=== PATIENT | male | born 1950 | race Caucasian/White ===

== ENCOUNTER 2019-03-17 22:57 | Inpatient (IN) | payer MEDICARE, BC | END 2019-03-18 10:50 | disposition home or self-care (01) | LOC: ER 22:57 → SUR 3N 03-18 02:53 ==

== ENCOUNTER 2019-05-29 23:47 | Emergency (ER) | payer BC, MEDICARE ==
[~2019-05-29] VITALS: Ht 182.9 cm; Wt 100.0 kg
[~2019-05-29 23:47] MED LIST: FLO0.4C PO; HYDR-4353 PO; MONT10TA21 PO; OLME40TA13 PO; SIMV20TA PO; TRAM50TA2 PO; TRIA1CAP6 PO
--- NOTE | 2019-05-30 00:01 | NUR ---
pt continues to shout "fuck you " at staff and yell "let me go" - he is in four point restraints and [employer] is still at bedside - pt then starts singing "misty ihelder" "ghost riders in the [place]"
[2019-05-30] MEDS ORDERED: LORazepam 2 mg/ml vial IV ONE (00:05)
[2019-05-30] MEDS ORDERED: normal saline 1000ML IV soln IVB ONE (00:05)
--- NOTE | 2019-05-30 00:07 | NUR ---
PT SHOUTED "CAN I TAKE YOU OUT AND SHOOT YOU"? AND THEN BEGINS SINGING AGAIN AND ASKS TO HAVE HIS BACK RUBBED AND "BEAT THE FUCK OUT OF ME"
--- NOTE | 2019-05-30 00:15 | NUR ---
PT HAS BEEN MEDICATED, LIGHTS DIMMED AND STAFF PRESENCE DECREASED. PT IS STILL IN RESTRAINTS AND IS REMINDED THAT HE NEEDS TO FOLLOW SAFETY DIRECTIONS AND STOP THREATENIND STAFF IN ORDER TO GET RELEASED FROM THE RESTRAINTS.
[2019-05-30 00:16] LABS: BASOPHILS # (AUTO) 0.1 X10'3 (0-0.2); BASOPHILS % (AUTO) 0.5 % (0-1); EOSINOPHILS % (AUTO) 0.3 % (0-6); HEMATOCRIT 42.7 % (42.0-52.0); LYMPHOCYTES # (AUTO) 2.4 X10'3 (1.1-4.8); LYMPHOCYTES % (AUTO) 21.5 % (21-51); MEAN CORPUSCULAR HEMOGLOBIN 27.6 PG (27.0-31.0); MEAN CORPUSCULAR HGB CONC 32.9 g/dL (33.0-36.5); MEAN CORPUSCULAR VOLUME 83.8 FL (78-98); MEAN PLATELET VOLUME 7.9 FL (7.4-10.4); MONOCYTES % (AUTO) 9.2 % (2-12); NEUTROPHILS # (AUTO) 7.5 X10'3 (1.8-7.7); NEUTROPHILS % (AUTO) 68.5 % (42-75); PLATELET COUNT 405 X10'3 (140-440); RED BLOOD COUNT 5.09 X10'6 (4.70-6.10)
[2019-05-30 00:18] LABS: CLARITY,URINE CLEAR (Clear); COLOR,URINE YELLOW (Yellow); GLUCOSE, URINE NEGATIVE (Neg); KETONES,URINE NEGATIVE (Neg); LEUKOCYTE ESTERASE ,URINE NEGATIVE (Neg); NITRITES, URINE NEGATIVE (Neg); OCCULT BLOOD,URINE SMALL (Neg); PROTEIN,URINE NEGATIVE (Neg); UROBILINOGEN,URINE 0.2 E.U/dL (0.2-1.0)
--- NOTE | 2019-05-30 00:18 | NUR ---
Lights dimmed and room cleared of security and nursing staff to attempt to get the patient calm. Patient remains in restraints because he continues to scream obsceneties and threaten staff stating, "who the fuck are you? I want you ! I'll send my sons to kick your fucking ass!"
[2019-05-30 00:19] LABS: UA COLLECTION TYPE STRAIGHT CATH
[2019-05-30 00:24] LABS: BACTERIA,URINE NONE SEEN /HPF (Neg); SQUAMOUS EPITHELIAL CELL,UR FEW /LPF (FEW); WBC,URINE 0-4 /HPF (0-4)
[2019-05-30 00:32] LABS: URINE AMPHETAMINE SCREEN NEGATIVE (Neg); URINE BARBITUATE SCREEN NEGATIVE (Neg); URINE BENZODIAZEPINES SCREEN NEGATIVE (Neg); URINE CANNABINOID SCREEN NEGATIVE (Neg); URINE COCAINE SCREEN NEGATIVE (Neg); URINE METHADONE SCREEN NEGATIVE (Neg); URINE OPIATE SCREEN NEGATIVE (Neg); URINE PHENCYCLIDINE SCREEN NEGATIVE (Neg)
[2019-05-30 00:33] LABS: ALANINE AMINOTRANSFERASE 50 U/L (12-78); ALBUMIN 3.4 G/DL (3.4-5.0); ALBUMIN/GLOBULIN RATIO 0.9 (1.1-1.5); ALKALINE PHOSPHATASE 96 IU/L (46-116); ANION GAP 17 (8-16); ASPARTATE AMINO TRANSFERASE 29 U/L (10-37); BILIRUBIN,TOTAL 0.3 MG/DL (0.1-1.0); BLOOD UREA NITROGEN 33 MG/DL (7-18); BUN/CREATININE RATIO 14.4 (5.4-32.0); CALCIUM 9.9 MG/DL (8.5-10.1); CHLORIDE 111 MMOL/L (99-107); CREATININE 2.29 MG/DL (0.60-1.10); GLUCOSE 184 MG/DL (70-104); POTASSIUM 3.6 MMOL/L (3.5-5.1); SODIUM 149 MMOL/L (135-145); TOTAL CARBON DIOXIDE 20.6 MMOL/L (24-32); eGFR 29 ML/MIN
[2019-05-30 00:42] LABS: ETHANOL 0.251 GM/DL (0.0-0.010)
--- NOTE | 2019-05-30 00:46 | NUR ---
Patient is now sleeping comfortably and restraints have been removed.
--- NOTE | 2019-05-30 01:02 | NUR ---
elisha to bedside to see patient. She states that he has been sober to the best of her knowledge since his last visit for the same symptoms. She inquires as to whether or not the patient will be admitted and if not, she would like mental health to see the patient if possible. She states that she thinks he may have been drinking vodka like the last time he was here. She leaves her home phone number for contact, [phone].
--- NOTE | 2019-05-30 02:03 | NUR ---
Patient is sleeping comfortably on his stomach with even, unlabored breathing. Patient is easily arousable but falls quickly back to sleep. He repeatedly removes his vitals monitoring equipment.
[2019-05-30] MEDS ORDERED: LIDOcaine 1% w/epiNEPHrine 1:200,000 30ml vial IM ONE (02:05)
[2019-05-30] MEDS ORDERED: TETanus/Pertussis (Acell)/Diphther VAC/PF (Tdap-Adult) 0.5ml syringe IM ONE (02:05)
--- NOTE | 2019-05-30 02:09 | NUR ---
Patient awoke and removed his IV without saying anything to staff. Patient was sitting in the corner of the room in a chair when Dr. Santos went in to check his legs to see if any wounds needed suturing. Patient was not very agreeable to answering questions making comments such as, "I do, do you?" when he was asked what year it was. Patient initially believed that it was year 1974 and that Earl Doyle was the president before slowly coming to the realization that it was, "almost 2016" and that Perico Bowman is the president.
--- NOTE | 2019-05-30 02:48 | NUR ---
Patient is now awake and much more cooperative. Patient with requests of water which was provided in large pitcher.
[2019-05-30] MEDS ORDERED: LIDOcaine/epinephrine TOPICAL 5 ML BTL TOP ONE (03:05)
--- NOTE | 2019-05-30 03:42 | NUR ---
Wound irrigated with 500mL of normal saline as requested by Dr. Santos.
[2019-05-30] MEDS ORDERED: CEPH500C5 PO (04:07)
--- NOTE | 2019-05-30 04:14 | NUR ---
Wound sutured by Dr. Santos. Wound dressed with petroleum gauze and gauze wrap.
--- NOTE | 2019-05-30 04:16 | NUR ---
Attempt made to contact Jennifer but she did not answer the phone. Message left for her to call back when she became available.
--- NOTE | 2019-05-30 04:46 | NUR ---
Patient is AOx4 and ambulating about the ED without any assistance. He is discharge ready and does not wish to wait until his answers to come get him. He states he has access to the house even if his and daughter who are at the residence do not answer the door when he knocks. Patient is apologetic about his behavior and states that he understands that he needs to get back into AA and that he thought he could handle drinking every now and then. He states he knows he cannot do that and needs to remain sober. Shirt and shoes provided as he had none when he came in. Watch returned to him which was his only other belonging besides the shorts he is wearing.
[2019-05-30 05:23] VITALS: BP 160/90
== END 2019-05-30 05:25 | disposition home or self-care (01) ==
LOC: ER 23:48
DX: S81.811A Laceration without foreign body, right lower leg, initial encounter (principal); R40.4 Transient alteration of awareness; F10.129 Alcohol abuse with intoxication, unspecified; I10 Essential (primary) hypertension; G89.29 Other chronic pain; Z79.2 Long term (current) use of antibiotics; Z79.899 Other long term (current) drug therapy; W26.8XXA Contact with other sharp object(s), not elsewhere classified, initial encounter; Y93.89 Activity, other specified; Y92.89 Other specified places as the place of occurrence of the external cause; Y99.8 Other external cause status
CPT/HCPCS: 12001; 36415; 70450; 73590; 73630; 80053; 80305; 80320; 81001; 82140; 82948; 84443; 85025; 85610; 90471; 90714; 96374; 99284; J2060; J7030; P9612

== ENCOUNTER 2020-07-03 11:48 | Emergency (ER) | payer BC, MEDICARE ==
[~2020-07-03] VITALS: Ht 182.9 cm; Wt 100.0 kg
[~2020-07-03 11:48] MED LIST changes: +AMLO10TA13 PO; -HYDR-4353 PO; +SIMV10TA98 PO; -SIMV20TA PO; -TRIA1CAP6 PO
[2020-07-03 12:47] LABS: BASOPHILS % (AUTO) 0.5 % (0-1); EOSINOPHILS % (AUTO) 0.8 % (0-6); HEMATOCRIT 36.9 % (42.0-52.0); HEMOGLOBIN 11.9 g/dl (14.0-17.9); LYMPHOCYTES # (AUTO) 1.1 X10'3 (1.1-4.8); LYMPHOCYTES % (AUTO) 30.2 % (21-51); MEAN CORPUSCULAR HEMOGLOBIN 26.5 PG (27.0-31.0); MEAN CORPUSCULAR HGB CONC 32.2 g/dL (33.0-36.5); MEAN PLATELET VOLUME 7.1 FL (7.4-10.4); MONOCYTES # (AUTO) 0.4 X10'3 (0-0.9); MONOCYTES % (AUTO) 11.1 % (2-12); NEUTROPHILS # (AUTO) 2.1 X10'3 (1.8-7.7); NEUTROPHILS % (AUTO) 57.4 % (42-75); PLATELET COUNT 219 X10'3 (140-440); RED BLOOD COUNT 4.49 X10'6 (4.70-6.10); RED CELL DISTRIBUTION WIDTH 20.9 % (11.5-14.5); WHITE BLOOD COUNT 3.6 X10'3 (4.5-11.0)
[2020-07-03 12:58] LABS: ALANINE AMINOTRANSFERASE 80 U/L (12-78); ALBUMIN 3.8 G/DL (3.4-5.0); ALBUMIN/GLOBULIN RATIO 1.1 (1.1-1.5); ALKALINE PHOSPHATASE 126 IU/L (46-116); ANION GAP 11 (8-16); ASPARTATE AMINO TRANSFERASE 81 U/L (10-37); BILIRUBIN,TOTAL 0.4 MG/DL (0.1-1.0); BLOOD UREA NITROGEN 20 MG/DL (7-18); BUN/CREATININE RATIO 15.7 (5.4-32.0); CALCIUM 8.4 MG/DL (8.5-10.1); CHLORIDE 107 MMOL/L (99-107); CREATININE 1.27 MG/DL (0.60-1.10); GLUCOSE 116 MG/DL (70-104); POTASSIUM 3.7 MMOL/L (3.5-5.1); SODIUM 143 MMOL/L (135-145); TOTAL CARBON DIOXIDE 25.1 MMOL/L (24-32); TOTAL PROTEIN 7.3 G/DL (6.4-8.2); eGFR 56 ML/MIN
[2020-07-03 13:17] LABS: ANISOCYTOSIS 3+; HYPOCHROMASIA 1+; PLATELET ESTIMATE NORMAL; POLYCHROMASIA 1+
--- NOTE | 2020-07-03 13:43 | NUR ---
Pt has been sober for 30 years and started drinking vodka for the last two weeks. Pt has bilateral pedal edema that he states he noticed 2 weeks ago. Pt has wounds to right lateral calf states he has fallen when he was drunk. Pt denies n/v, had BM this morning normal bm. Pt has a distended abdomen and states it is more bloated than normal. Pt has BP of 191/118 hasn't taken his htn medication for a week due to drinking.
--- NOTE | 2020-07-03 13:50 | NUR ---
Pt updated with plan of care and is awaiting abd US.
[2020-07-03] MEDS ORDERED: phenobarbital inj 260 MG in normal saline 100ml IV soln 100 ML IV ONE (14:10)
[2020-07-03] MEDS ORDERED: thiamine 100mg tablet PO ONE (14:10)
[2020-07-03] MEDS ORDERED: magnesium 2GM in 50ml NS 50 ML IV ONE (14:10)
[2020-07-03] MEDS ORDERED: normal saline 1000ML IV soln IVB ONE (14:15)
[2020-07-03 14:42] LABS: ETHANOL 0.296 GM/DL (0.0-0.010); MAGNESIUM 2.2 MG/DL (1.5-2.4)
[2020-07-03] MEDS ORDERED: traMADol 50MG tablet PO STA (15:00)
[2020-07-03 15:45] VITALS: BP 175/104
== END 2020-07-03 15:57 | disposition home or self-care (01) ==
LOC: ER 11:50
DX: F10.229 Alcohol dependence with intoxication, unspecified (principal); R60.0 Localized edema; N28.9 Disorder of kidney and ureter, unspecified; F10.239 Alcohol dependence with withdrawal, unspecified; R74.0 Nonspecific elevation of levels of transaminase and lactic acid dehydrogenase [LDH]; R14.0 Abdominal distension (gaseous); I10 Essential (primary) hypertension; G89.29 Other chronic pain; F41.9 Anxiety disorder, unspecified; M54.9 Dorsalgia, unspecified; Z88.8 Allergy status to other drugs, medicaments and biological substances; Z79.899 Other long term (current) drug therapy; Y90.0 Blood alcohol level of less than 20 mg/100 ml
CPT/HCPCS: 36415; 74176; 80053; 80320; 83735; 83880; 84484; 85008; 85025; 93005; 96365; 96368; 99285; J3475; J7030; 96375

== ENCOUNTER 2020-07-30 03:28 | Emergency (ER) | payer BC ==
[~2020-07-30] VITALS: Ht 182.9 cm; Wt 100.0 kg
[2020-07-30] MEDS ORDERED: normal saline 1000ml 1,000 ML IV ONE ×2 (04:00→06:15)
--- NOTE | 2020-07-30 04:04 | NUR ---
BENI ROSE [phone] ()
[2020-07-30 04:09] LABS: BASOPHILS % (AUTO) 1.2 % (0-1); EOSINOPHILS # (AUTO) 0.1 X10'3 (0-0.9); EOSINOPHILS % (AUTO) 1.5 % (0-6); HEMATOCRIT 35.4 % (42.0-52.0); HEMOGLOBIN 11.7 g/dl (14.0-17.9); LYMPHOCYTES # (AUTO) 0.9 X10'3 (1.1-4.8); LYMPHOCYTES % (AUTO) 23.2 % (21-51); MEAN CORPUSCULAR HEMOGLOBIN 27.8 PG (27.0-31.0); MEAN CORPUSCULAR HGB CONC 33.1 g/dL (33.0-36.5); MEAN CORPUSCULAR VOLUME 83.9 FL (78-98); MEAN PLATELET VOLUME 7.8 FL (7.4-10.4); MONOCYTES # (AUTO) 0.6 X10'3 (0-0.9); MONOCYTES % (AUTO) 15.8 % (2-12); NEUTROPHILS # (AUTO) 2.2 X10'3 (1.8-7.7); NEUTROPHILS % (AUTO) 58.3 % (42-75); PLATELET COUNT 271 X10'3 (140-440); RED BLOOD COUNT 4.23 X10'6 (4.70-6.10); RED CELL DISTRIBUTION WIDTH 19.6 % (11.5-14.5); WHITE BLOOD COUNT 3.8 X10'3 (4.5-11.0)
[2020-07-30 04:13] LABS: ALANINE AMINOTRANSFERASE 154 U/L (12-78); ALBUMIN/GLOBULIN RATIO 1.1 (1.1-1.5); ALKALINE PHOSPHATASE 129 IU/L (46-116); ANION GAP 14 (8-16); ASPARTATE AMINO TRANSFERASE 140 U/L (10-37); BILIRUBIN,TOTAL 0.5 MG/DL (0.1-1.0); BLOOD UREA NITROGEN 62 MG/DL (7-18); BUN/CREATININE RATIO 26.2 (5.4-32.0); CHLORIDE 100 MMOL/L (99-107); CREATININE 2.37 MG/DL (0.60-1.10); GLUCOSE 137 MG/DL (70-104); POTASSIUM 4.6 MMOL/L (3.5-5.1); SODIUM 136 MMOL/L (135-145); TOTAL CARBON DIOXIDE 22.1 MMOL/L (24-32); TOTAL PROTEIN 7.6 G/DL (6.4-8.2); eGFR 27 ML/MIN
[2020-07-30] MEDS ORDERED: diazepam inj 5 MG/ML inj. IV ONE (04:15)
[2020-07-30] MEDS ORDERED: normal saline 1000ML IV soln IVB ONE (06:00)
[2020-07-30] MEDS ORDERED: phenobarbital inj 260 MG in normal saline 100ml IV soln 100 ML IV ONE (06:00)
[2020-07-30 08:17] LABS: BASOPHILS % (AUTO) 0.9 % (0-1); EOSINOPHILS % (AUTO) 0.4 % (0-6); HEMATOCRIT 35.7 % (42.0-52.0); HEMOGLOBIN 11.6 g/dl (14.0-17.9); LYMPHOCYTES # (AUTO) 0.4 X10'3 (1.1-4.8); LYMPHOCYTES % (AUTO) 7.6 % (21-51); MEAN CORPUSCULAR HEMOGLOBIN 27.5 PG (27.0-31.0); MEAN CORPUSCULAR HGB CONC 32.5 g/dL (33.0-36.5); MEAN CORPUSCULAR VOLUME 84.5 FL (78-98); MEAN PLATELET VOLUME 7.9 FL (7.4-10.4); MONOCYTES # (AUTO) 0.7 X10'3 (0-0.9); MONOCYTES % (AUTO) 12.8 % (2-12); NEUTROPHILS % (AUTO) 78.3 % (42-75); PLATELET COUNT 252 X10'3 (140-440); RED BLOOD COUNT 4.23 X10'6 (4.70-6.10); WHITE BLOOD COUNT 5.1 X10'3 (4.5-11.0)
[2020-07-30 08:24] LABS: MAGNESIUM 1.8 MG/DL (1.5-2.4)
[2020-07-30 08:25] LABS: ETHANOL < 0.010 GM/DL (0.0-0.010)
[2020-07-30] MEDS ORDERED: phenobarbital inj 130 MG in normal saline 100ml IV soln 100 ML IV ONE (08:35)
[2020-07-30 09:39] LABS: PLATELET ESTIMATE NORMAL
[2020-07-30 09:40] LABS: ANISOCYTOSIS 2+
[2020-07-30 09:41] LABS: ELLIPTOCYTES FEW
--- NOTE | 2020-07-30 10:50 | NUR ---
Pt gave verbal consent to update Jennifer ([phone]) on status. She will pick him up when DC ready.
--- NOTE | 2020-07-30 11:56 | NUR ---
CALL PLACED TO PT'S BENI TO MAKE AWARE PT IS D/C READY. BENI STATED SHE WILL BE HERE IN 15-20 MINUTES.
[2020-07-30 12:13] VITALS: BP 171/95
== END 2020-07-30 12:08 | disposition home or self-care (01) ==
LOC: ER 03:29
DX: F10.229 Alcohol dependence with intoxication, unspecified (principal); F10.239 Alcohol dependence with withdrawal, unspecified; I12.9 Hypertensive chronic kidney disease with stage 1 through stage 4 chronic kidney disease, or unspecified chronic kidney disease; N18.9 Chronic kidney disease, unspecified; N17.9 Acute kidney failure, unspecified; D50.0 Iron deficiency anemia secondary to blood loss (chronic); R74.01 Elevation of levels of liver transaminase levels; E86.0 Dehydration; G89.29 Other chronic pain; F41.9 Anxiety disorder, unspecified; Z88.8 Allergy status to other drugs, medicaments and biological substances; Z79.899 Other long term (current) drug therapy; Y90.0 Blood alcohol level of less than 20 mg/100 ml
CPT/HCPCS: 36415; 80053; 80320; 83735; 84484; 85025; 93005; 96361; 96365; 96375; 96376; 99285; J2560; J3360; J7030; 85008

== ENCOUNTER 2020-08-04 11:34 | Observation (INO) | payer MEDICARE, BC ==
[~2020-08-04] VITALS: Ht 182.9 cm; Wt 100.0 kg
[2020-08-04] MEDS ORDERED: aspirin 81mg tab.chew PO ONE (11:40)
[2020-08-04] MEDS ORDERED: adenosine 3mg/ml 2ml vial IV ONE ×2 (11:55→12:25)
--- NOTE | 2020-08-04 12:09 | NUR ---
12 of Adenosine given. Patient now in sinus tach rythm at 112 bpm. Patient is resting comfortably.
[2020-08-04 12:12] LABS: BASOPHILS # (AUTO) 0.1 X10'3 (0-0.2); EOSINOPHILS # (AUTO) 0.4 X10'3 (0-0.9); EOSINOPHILS % (AUTO) 4.1 % (0-6); HEMATOCRIT 42.1 % (42.0-52.0); HEMOGLOBIN 13.6 g/dl (14.0-17.9); LYMPHOCYTES # (AUTO) 1.5 X10'3 (1.1-4.8); LYMPHOCYTES % (AUTO) 15.4 % (21-51); MEAN CORPUSCULAR HEMOGLOBIN 27.7 PG (27.0-31.0); MEAN CORPUSCULAR HGB CONC 32.3 g/dL (33.0-36.5); MEAN CORPUSCULAR VOLUME 85.9 FL (78-98); MONOCYTES # (AUTO) 1.8 X10'3 (0-0.9); MONOCYTES % (AUTO) 18.1 % (2-12); NEUTROPHILS # (AUTO) 6.1 X10'3 (1.8-7.7); NEUTROPHILS % (AUTO) 61.4 % (42-75); PLATELET COUNT 353 X10'3 (140-440); RED CELL DISTRIBUTION WIDTH 18.7 % (11.5-14.5); WHITE BLOOD COUNT 9.9 X10'3 (4.5-11.0)
--- NOTE | 2020-08-04 12:15 | NUR ---
DISCUSSED PT'S STATED ANXIETY W/ EDMD KIRK;NEW ORDER ATIVAN 1MG IV RECEIVED
[2020-08-04] MEDS ORDERED: LORazepam 2 mg/ml vial IV ONE (12:20)
--- NOTE | 2020-08-04 12:30 | NUR ---
Patient rythm now increased to 144 bpm sinus tachycardia. Patient denies any CP or SOB and is resting comfortably. Fluids being infused to help with blood pressure.
[2020-08-04 12:31] LABS: ALANINE AMINOTRANSFERASE 98 U/L (12-78); ALBUMIN 4.3 G/DL (3.4-5.0); ALKALINE PHOSPHATASE 140 IU/L (46-116); ANION GAP 9 (8-16); ASPARTATE AMINO TRANSFERASE 56 U/L (10-37); BILIRUBIN,TOTAL 0.5 MG/DL (0.1-1.0); BLOOD UREA NITROGEN 40 MG/DL (7-18); BUN/CREATININE RATIO 18.3 (5.4-32.0); CALCIUM 10.4 MG/DL (8.5-10.1); CHLORIDE 98 MMOL/L (99-107); CREATININE 2.19 MG/DL (0.60-1.10); GLUCOSE 170 MG/DL (70-104); POTASSIUM 3.9 MMOL/L (3.5-5.1); SODIUM 134 MMOL/L (135-145); TOTAL CARBON DIOXIDE 27.5 MMOL/L (24-32); TOTAL PROTEIN 8.6 G/DL (6.4-8.2); eGFR 30 ML/MIN
[2020-08-04 12:37] LABS: MAGNESIUM 2.1 MG/DL (1.5-2.4)
--- NOTE | 2020-08-04 12:40 | NUR ---
RIGHT SIDED EJ PLACED. WHEN PATIENT WAS BARING DOWN FOR IV INSERTION, HEART RATE DECREASED FROM 140S TO 100S WHERE THE PATIENT REMAINS.
[2020-08-04] MEDS ORDERED: normal saline 1000ml 1,000 ML IV ONE (12:45)
--- NOTE | 2020-08-04 12:50 | NUR ---
Spoke to patients . She states She states patient has been taking Clonidine for 5 days and was advised by rehab doctor to stopped today
--- NOTE | 2020-08-04 12:50 | NUR ---
Lavern ceja in ED - 08/04/20 at 1251 by ADRIANA Spoke to patients . She states She states patient has been taking Clonidine for 5 days and was advised by rehab doctor to stopped today
--- NOTE | 2020-08-04 12:51 | NUR ---
Spoke to patients . She states that the patient was taking Gabapentin 3 times a day to help with detoxing. Patient has been detoxing for a week. She states patient has been taking Clonidine for 5 days and was advised by rehab doctor to stop today. Norm Patterson is the provider. Patients states he was drinking heavily for 6 weeks and stopped all of a sudden when beginning detox.
[2020-08-04 12:56] LABS: ANISOCYTOSIS 2+; PLATELET ESTIMATE NORMAL; TOTAL CELLS COUNTED 100
[2020-08-04] MEDS ORDERED: mag hydrox/Alum hydrox/simeth 30ml oral suspension PO PRN (13:45)
[2020-08-04] MEDS ORDERED: LORazepam 2 mg/ml vial IV PRN (13:45)
[2020-08-04] MEDS ORDERED: dextrose 50%-water 50ml dispensing syringe IV PRN (13:45)
[2020-08-04] MEDS ORDERED: magnesium hydroxide 30ml (MOM) UD suspension PO PRN (13:45)
[2020-08-04] MEDS ORDERED: acetaminophen 325mg tablet PO PRN (13:45)
[2020-08-04] MEDS ORDERED: ondansetron/PF 4mg/2ml inj IV PRN (13:45)
[2020-08-04] MEDS ORDERED: thiamine 100mg/ml 2ml inj. IV ONE (13:45)
[2020-08-04] MEDS ORDERED: folic acid 1mg/0.2ml inj IV SCH (14:00)
[2020-08-04] MEDS ORDERED: OLME40TA18 PO (14:25)
[2020-08-04] MEDS ORDERED: FLO0.4C PO (14:25)
[2020-08-04] MEDS ORDERED: SIMV10TA98 PO (14:25)
[2020-08-04] MEDS ORDERED: TRAZ-251 PO (14:25)
[2020-08-04] MEDS ORDERED: GABA300C PO (14:25)
[2020-08-04] MEDS ORDERED: TRIA1CAP6 PO (14:25)
[2020-08-04] MEDS ORDERED: FURO40TA4 PO (14:25)
[2020-08-04] MEDS ORDERED: CLON0.1T PO (14:25)
[2020-08-04] MEDS ORDERED: thiamine inj. 100 MG, MVI, adult No.4 with vit. K 10 ML in dextrose 5% water 500ml 500 ML IV SCH ×3 (14:30)
[2020-08-04] MEDS ORDERED: metoprolol succinate 25mg (24-HOUR) SR. Tablet PO ONE (15:55)
--- NOTE | 2020-08-04 16:01 | NUR ---
Spoke to Dr. Lares regarding several, frequent rhythm changes. Order for 12.5mg metoprolol PO given. Patient is also allergic to ativan, Dr. Lares gives an order to continue his normally prescribed gabapentin which is placed.
[2020-08-04] MEDS: normal saline 1000ml 1,000 ML IV SCH ×2 (16:08→21:06)
[2020-08-04] MEDS: gabapentin 300mg capsule PO SCH (16:21)
--- NOTE | 2020-08-04 16:54 | NUR ---
Patient is resting comfortably in bed and in no distress.
[2020-08-04] MEDS ORDERED: gabapentin 300mg capsule PO SCH (20:00)
[2020-08-04] MEDS ORDERED: tamsulosin 0.4mg capsule PO SCH (21:00)
[2020-08-04] MEDS ORDERED: traZODone 50mg tablet PO SCH (21:00)
[2020-08-04] MEDS ORDERED: atorvastatin 10mg tablet PO SCH (21:00)
[2020-08-04] MEDS: metoprolol tartrate 12.5mg (1/2 tablet) PO SCH (21:03)
[2020-08-04] MEDS: cloNIDine 0.1 mg tablet PO SCH (21:04)
[2020-08-04] MEDS: heparin, porcine 5000 units/ml vial SQ SCH (21:05)
[2020-08-04 22:00] VITALS: BP 129/72
--- NOTE | 2020-08-05 00:50 | NUR ---
[facility] hospitalist to have options other than Ativan in case of ETOH withdrawal symptoms. [id number], Laura, Dx: SVT. Patient 5 days into ETOH detox, we have ETOH protocol in place but patient is allergic to Lorazepam with it still ordered. Is there something else we can order in case of withdrawal symptoms? Fauzia [id number]
[2020-08-05] MEDS ORDERED: chlordiazePOXIDE 25mg capsule PO PRN (00:55)
[2020-08-05 02:00] VITALS: BP 90/52
--- NOTE | 2020-08-05 05:49 | NUR ---
Sent Pharmacy message about patient's ativan allergy and asked them to flag or dc the med. Patient has librium ordered if needed
--- NOTE | 2020-08-05 05:53 | NUR ---
Ativan Allergy Ativan orders on hold/future hold for patient allergy. Pharmacy aware.
--- NOTE | 2020-08-05 06:08 | NUR ---
Problems reprioritized. Patient report given, questions answered & plan of care reviewed with Shalonda VELASQUEZ. Patient stable at transfer of care. All current needs met
--- NOTE | 2020-08-05 06:23 | NUR ---
Patient in room PCU 3018. I have received report from Kizzy VELASQUEZ and had the opportunity to ask questions and assume patient care. Patient in bed and resting comfortably. Offers no complaints. All immediate needs met at this time.
[2020-08-05 06:49] LABS: ALANINE AMINOTRANSFERASE 81 U/L (12-78); ALBUMIN 3.5 G/DL (3.4-5.0); ALKALINE PHOSPHATASE 110 IU/L (46-116); ANION GAP 9 (8-16); ASPARTATE AMINO TRANSFERASE 43 U/L (10-37); BILIRUBIN,TOTAL 0.4 MG/DL (0.1-1.0); BLOOD UREA NITROGEN 36 MG/DL (7-18); CALCIUM 8.9 MG/DL (8.5-10.1); CHLORIDE 104 MMOL/L (99-107); CREATININE 1.64 MG/DL (0.60-1.10); GLUCOSE 108 MG/DL (70-104); POTASSIUM 4.1 MMOL/L (3.5-5.1); SODIUM 138 MMOL/L (135-145); TOTAL CARBON DIOXIDE 25.1 MMOL/L (24-32); eGFR 42 ML/MIN
[2020-08-05 07:00] VITALS: BP 110/70
[2020-08-05] MEDS ORDERED: multivitamins, therapeutics tablet PO SCH (08:00)
[2020-08-05] MEDS ORDERED: thiamine 100mg tablet PO SCH (08:00)
[2020-08-05] MEDS ORDERED: furosemide 40mg tablet PO SCH (08:00)
[2020-08-05] MEDS: gabapentin 300mg capsule PO SCH (08:24)
[2020-08-05] MEDS: cloNIDine 0.1 mg tablet PO SCH (08:25)
[2020-08-05] MEDS: heparin, porcine 5000 units/ml vial SQ SCH (08:27)
[2020-08-05 08:28] LABS: BASOPHILS # (AUTO) 0.1 X10'3 (0-0.2); BASOPHILS % (AUTO) 1.3 % (0-1); EOSINOPHILS # (AUTO) 0.4 X10'3 (0-0.9); EOSINOPHILS % (AUTO) 7.5 % (0-6); HEMATOCRIT 36.5 % (42.0-52.0); HEMOGLOBIN 11.6 g/dl (14.0-17.9); LYMPHOCYTES # (AUTO) 0.8 X10'3 (1.1-4.8); LYMPHOCYTES % (AUTO) 15.5 % (21-51); MEAN CORPUSCULAR HEMOGLOBIN 27.3 PG (27.0-31.0); MEAN CORPUSCULAR HGB CONC 31.9 g/dL (33.0-36.5); MEAN CORPUSCULAR VOLUME 85.6 FL (78-98); MEAN PLATELET VOLUME 8.1 FL (7.4-10.4); MONOCYTES # (AUTO) 0.8 X10'3 (0-0.9); MONOCYTES % (AUTO) 15.8 % (2-12); NEUTROPHILS # (AUTO) 2.9 X10'3 (1.8-7.7); NEUTROPHILS % (AUTO) 59.9 % (42-75); PLATELET COUNT 299 X10'3 (140-440); RED BLOOD COUNT 4.26 X10'6 (4.70-6.10); RED CELL DISTRIBUTION WIDTH 18.4 % (11.5-14.5); WHITE BLOOD COUNT 4.9 X10'3 (4.5-11.0)
[2020-08-05] MEDS: metoprolol tartrate 12.5mg (1/2 tablet) PO SCH (08:30)
[2020-08-05 09:46] LABS: NUCLEATED RED BLOOD CELLS 3 /100WBC (0-0); TOTAL CELLS COUNTED 100
[2020-08-05 09:47] LABS: ANISOCYTOSIS 2+; PLATELET ESTIMATE NORMAL
[2020-08-05] MEDS ORDERED: folic acid 1mg tablet PO SCH (10:00)
[2020-08-05] MEDS ORDERED: METO25TA6 PO (10:12)
[2020-08-05] MEDS ORDERED: FOLI0.4T14 PO (10:12)
[2020-08-05] MEDS ORDERED: THIA100T70 PO (10:12)
[2020-08-05 11:00] VITALS: BP 117/66
--- NOTE | 2020-08-05 13:00 | NUR ---
Patient stable for discharge per MD orders. All discharge instructions reviewed with patient and all questions answered. New prescriptions sent electronically to [facility] . PIV discontinued - cannula intact. Telemetry monitoring discontinued. Patient instructed to return to ER for worsening symptoms related to heart rate. All patient belongings packed up and sent with patient in private vehicle to home. Patient wheeled to lobby by RN and picked up by spouse.
[2020-08-06] MEDS ORDERED: LORazepam 2 mg/ml vial IV PRN (13:45)
[2020-08-06] MEDS ORDERED: LORazepam 1 MG tablet PO PRN (13:45)
[2020-08-08] MEDS ORDERED: LORazepam 1 MG tablet PO PRN (13:45)
[2020-08-08] MEDS ORDERED: LORazepam 2 mg/ml vial IV PRN (13:45)
== END 2020-08-05 13:05 | disposition home or self-care (01) ==
LOC: ER 11:34 → ED HOLD 13:41 → PCU 3S 19:40
PROVIDERS: ADMIT Family Medicine; ATTEND Family Medicine
DX: I47.1 Supraventricular tachycardia (principal); R42 Dizziness and giddiness; I10 Essential (primary) hypertension; E78.5 Hyperlipidemia, unspecified; F10.239 Alcohol dependence with withdrawal, unspecified; N40.0 Benign prostatic hyperplasia without lower urinary tract symptoms; F41.9 Anxiety disorder, unspecified; G89.29 Other chronic pain; M54.9 Dorsalgia, unspecified; Z85.46 Personal history of malignant neoplasm of prostate; Z87.891 Personal history of nicotine dependence; Z79.899 Other long term (current) drug therapy; Z88.8 Allergy status to other drugs, medicaments and biological substances
CPT/HCPCS: 36415; 71045; 80053; 83735; 83880; 84484; 85025; 87081; 93005; 93306; 96361; 96365; 96366; 96372; 96375; 99285; G0378; J0153; J1644; J3411; J3490; J7030; J7060; 85007

== ENCOUNTER 2021-01-02 10:14 | Emergency (ER) | payer BC ==
[~2021-01-02] VITALS: Ht 182.9 cm; Wt 102.3 kg
[~2021-01-02 10:14] MED LIST changes: -AMLO10TA13 PO; +FOLI0.4T14 PO; +FURO40TA4 PO; +GABA300C PO; +METO25TA6 PO; -MONT10TA21 PO; -OLME40TA13 PO; +OLME40TA18 PO; +THIA100T70 PO; -TRAM50TA2 PO; +TRAZ-251 PO
[2021-01-02 10:25] VITALS: BP 122/89
[2021-01-02] MEDS ORDERED: GABA300C PO (10:54)
[2021-01-02] MEDS ORDERED: gabapentin 400mg capsule PO SCH (10:55)
[2021-01-02] MEDS ORDERED: gabapentin 300mg capsule PO ONE (10:55)
== END 2021-01-02 11:11 | disposition home or self-care (01) ==
LOC: ER 10:15
DX: F10.10 Alcohol abuse, uncomplicated (principal); I10 Essential (primary) hypertension; G89.29 Other chronic pain; Z85.9 Personal history of malignant neoplasm, unspecified; Z88.8 Allergy status to other drugs, medicaments and biological substances; Z76.0 Encounter for issue of repeat prescription; Z79.899 Other long term (current) drug therapy; Y90.9 Presence of alcohol in blood, level not specified
CPT/HCPCS: 99283

== ENCOUNTER 2021-07-29 04:43 | Emergency (ER) | payer BC, MEDICARE ==
[~2021-07-29] VITALS: Ht 185.4 cm; Wt 115.0 kg
[~2021-07-29 04:43] MED LIST changes: +LOP25T PO; -METO25TA6 PO
[2021-07-29 05:39] LABS: BASOPHILS # (AUTO) 0.1 X10'3 (0-0.2); EOSINOPHILS # (AUTO) 0.2 X10'3 (0-0.9); EOSINOPHILS % (AUTO) 2.5 % (0-6); HEMATOCRIT 38.7 % (42.0-52.0); HEMOGLOBIN 12.4 g/dl (14.0-17.9); LYMPHOCYTES # (AUTO) 1.5 X10'3 (1.1-4.8); LYMPHOCYTES % (AUTO) 20.3 % (21-51); MEAN CORPUSCULAR HEMOGLOBIN 24.5 PG (27.0-31.0); MEAN CORPUSCULAR VOLUME 76.7 FL (78-98); MONOCYTES # (AUTO) 0.7 X10'3 (0-0.9); MONOCYTES % (AUTO) 9.1 % (2-12); NEUTROPHILS % (AUTO) 67.1 % (42-75); PLATELET COUNT 331 X10'3 (140-440); RED BLOOD COUNT 5.05 X10'6 (4.70-6.10); RED CELL DISTRIBUTION WIDTH 18.3 % (11.5-14.5); WHITE BLOOD COUNT 7.4 X10'3 (4.5-11.0)
[2021-07-29 05:47] LABS: ALANINE AMINOTRANSFERASE 33 U/L (12-78); ALBUMIN 3.8 G/DL (3.4-5.0); ALBUMIN/GLOBULIN RATIO 1.3 (1.1-1.5); ALKALINE PHOSPHATASE 109 IU/L (46-116); ANION GAP 10 (8-16); ASPARTATE AMINO TRANSFERASE 31 U/L (10-37); BILIRUBIN,TOTAL 0.5 MG/DL (0.1-1.0); BLOOD UREA NITROGEN 26 MG/DL (7-18); BUN/CREATININE RATIO 21.1 (5.4-32.0); CALCIUM 8.6 MG/DL (8.5-10.1); CHLORIDE 111 MMOL/L (99-107); CREATININE 1.23 MG/DL (0.60-1.10); GLUCOSE 151 MG/DL (70-104); POTASSIUM 3.7 MMOL/L (3.5-5.1); SODIUM 147 MMOL/L (135-145); TOTAL CARBON DIOXIDE 26.4 MMOL/L (24-32); TOTAL PROTEIN 6.8 G/DL (6.4-8.2); eGFR 58 ML/MIN
[2021-07-29] MEDS ORDERED: LORazepam 2 mg/ml vial IV ONE (05:50)
[2021-07-29] MEDS ORDERED: gabapentin 300mg capsule PO ONE (05:50)
[2021-07-29] MEDS ORDERED: normal saline 1000ML IV soln IVB ONE (05:50)
[2021-07-29] MEDS ORDERED: metoprolol tartrate 50mg tablet PO ONE (05:50)
--- NOTE | 2021-07-29 06:02 | NUR ---
PT STATES HE DOES NOT WANT THE ATIVAN, STATES IT MAKES HIM FEEL CRAZY.
[2021-07-29] MEDS ORDERED: phenobarbital inj 260 MG in normal saline 100ml IV soln 98 ML IV STA (06:39)
[2021-07-29] MEDS ORDERED: losartan 50mg tablet PO STA (08:13)
--- NOTE | 2021-07-29 09:21 | NUR ---
Patient has elevated blood pressure of 210/134 Dr Garcia notified and states he is ok to discharge, patient and at bedside discussing plan.
[2021-07-29 09:25] VITALS: BP 210/134
== END 2021-07-29 09:36 | disposition home or self-care (01) ==
LOC: ER 04:44
DX: F10.239 Alcohol dependence with withdrawal, unspecified (principal); R00.0 Tachycardia, unspecified; I10 Essential (primary) hypertension; G89.29 Other chronic pain; F41.9 Anxiety disorder, unspecified; Z85.9 Personal history of malignant neoplasm, unspecified; Z72.89 Other problems related to lifestyle; Z88.8 Allergy status to other drugs, medicaments and biological substances; Z79.899 Other long term (current) drug therapy; Y90.9 Presence of alcohol in blood, level not specified
CPT/HCPCS: 36415; 71045; 80053; 83880; 84484; 85025; 93005; 96361; 96365; 99285; J2560; J7030

== ENCOUNTER 2021-07-29 19:00 | Emergency (ER) | payer MEDICARE, BC ==
[~2021-07-29] VITALS: Ht 182.9 cm; Wt 90.5 kg
--- NOTE | 2021-07-29 23:13 | NUR ---
PATIENT CAME TO ED [facility] AND ANNOUNCED THEY WERE LEAVING. THEY WILL FOLLOW UP WITH THEIR PMD TOMORROW.
[2021-07-29 23:19] VITALS: BP 205/117
== END 2021-07-29 23:21 | disposition home or self-care (01) ==
LOC: ER 19:00
DX: I10 Essential (primary) hypertension (principal); Z53.21 Procedure and treatment not carried out due to patient leaving prior to being seen by health care provider
CPT/HCPCS: 99281

== ENCOUNTER 2021-11-22 23:57 | Emergency (ER) | payer MEDICARE, BC ==
[~2021-11-22] VITALS: Ht 188 cm; Wt 105.0 kg
[2021-11-23] MEDS ORDERED: LORazepam 2 mg/ml vial IV ONE ×2 (00:10→03:50)
[2021-11-23] MEDS ORDERED: haloperidol lactate 5mg/ml inj IM ONE (00:10)
[2021-11-23] MEDS ORDERED: diphenhydrAMINE 50 mg/ml inj IV ONE (00:10)
--- NOTE | 2021-11-23 00:45 | NUR ---
Patient has been combative, agitated, and yelling nonstop since being brought into the ED. Patient yelling obscenities at staff and yelling threats such as "I'm going to kill you!" Patient given IM medication for safety.
[2021-11-23] MEDS ORDERED: normal saline 1000ml 1,000 ML IV ONE ×2 (01:15→06:05)
[2021-11-23 01:28] LABS: BASOPHILS # (AUTO) 0.1 X10'3 (0-0.2); BASOPHILS % (AUTO) 1.3 % (0-1); EOSINOPHILS # (AUTO) 0.1 X10'3 (0-0.9); EOSINOPHILS % (AUTO) 0.8 % (0-6); HEMATOCRIT 36.3 % (42.0-52.0); HEMOGLOBIN 12.1 g/dl (14.0-17.9); LYMPHOCYTES # (AUTO) 4.8 X10'3 (1.1-4.8); LYMPHOCYTES % (AUTO) 43.1 % (21-51); MEAN CORPUSCULAR HGB CONC 33.4 g/dL (33.0-36.5); MEAN CORPUSCULAR VOLUME 83.7 FL (78-98); MEAN PLATELET VOLUME 7.9 FL (7.4-10.4); MONOCYTES # (AUTO) 0.7 X10'3 (0-0.9); NEUTROPHILS # (AUTO) 5.4 X10'3 (1.8-7.7); NEUTROPHILS % (AUTO) 48.8 % (42-75); PLATELET COUNT 393 X10'3 (140-440); RED BLOOD COUNT 4.33 X10'6 (4.70-6.10); RED CELL DISTRIBUTION WIDTH 17.6 % (11.5-14.5); WHITE BLOOD COUNT 11.1 X10'3 (4.5-11.0)
[2021-11-23 01:36] LABS: APTT 24 SECONDS (22-32)
[2021-11-23 01:39] LABS: ALANINE AMINOTRANSFERASE 40 U/L (12-78); ALBUMIN 3.6 G/DL (3.4-5.0); ALBUMIN/GLOBULIN RATIO 1.1 (1.1-1.5); ALKALINE PHOSPHATASE 120 IU/L (46-116); ANION GAP 14 (8-16); ASPARTATE AMINO TRANSFERASE 42 U/L (10-37); BILIRUBIN,DIRECT 0.1 MG/DL (0-0.3); BILIRUBIN,TOTAL 0.4 MG/DL (0.1-1.0); BLOOD UREA NITROGEN 26 MG/DL (7-18); BUN/CREATININE RATIO 16.5 (5.4-32.0); CHLORIDE 111 MMOL/L (99-107); CREATININE 1.58 MG/DL (0.60-1.10); GLUCOSE 175 MG/DL (70-104); LIPASE 157 U/L (73-393); POTASSIUM 3.3 MMOL/L (3.5-5.1); SODIUM 146 MMOL/L (135-145); TOTAL CARBON DIOXIDE 20.7 MMOL/L (24-32); eGFR 44 ML/MIN
[2021-11-23 01:45] LABS: ETHANOL 0.342 GM/DL (0.0-0.010)
[2021-11-23 01:50] LABS: CALCIUM 8.9 MG/DL (8.5-10.1)
--- NOTE | 2021-11-23 03:30 | NUR ---
Patient continuing to display disorganization and attempting to pull at catheter lines. Patient requiring ongoing non-behavioral restraints. Patient circulation normal and vitals stable.
--- NOTE | 2021-11-23 05:55 | NUR ---
Soft-limb restraints (non-behavioral) discontinued per provider. Patient able to communicate more appropriately at this time.
--- NOTE | 2021-11-23 07:52 | NUR ---
CALL AT [phone] TO [employer] OPERATOR THE PATIENT , STATED SHE WILL BE HERE IN 30 MINS.
[2021-11-23 07:57] VITALS: BP 141/85
== END 2021-11-23 08:40 | disposition home or self-care (01) ==
LOC: ER 23:57
DX: S82.832A Other fracture of upper and lower end of left fibula, initial encounter for closed fracture (principal); Z20.822 Contact with and (suspected) exposure to COVID-19; S82.102A Unspecified fracture of upper end of left tibia, initial encounter for closed fracture; S90.32XA Contusion of left foot, initial encounter; R41.82 Altered mental status, unspecified; I10 Essential (primary) hypertension; G89.29 Other chronic pain; Z85.9 Personal history of malignant neoplasm, unspecified; Z72.89 Other problems related to lifestyle; Z88.8 Allergy status to other drugs, medicaments and biological substances; Z79.899 Other long term (current) drug therapy; X58.XXXA Exposure to other specified factors, initial encounter; Y93.89 Activity, other specified; Y92.89 Other specified places as the place of occurrence of the external cause; Y99.8 Other external cause status
CPT/HCPCS: 29515; 36415; 70450; 70486; 72125; 73610; 73630; 80048; 80076; 80320; 82140; 83690; 85025; 85610; 85730; 87635; 93005; 96361; 96372; 96374; 96375; 96376; 99285; C9803; J1200; J1630; J2060; J7030